=== PATIENT | female | born 1985 | race Caucasian/White ===

== ENCOUNTER 2016-05-04 01:43 | Emergency (ER) | payer SELFPAY ==
[~2016-05-04] VITALS: Ht 152.4 cm; Wt 78.0 kg
[~2016-05-04 01:43] MED LIST: PRED20 PO; VENTAER INH
[2016-05-04 01:45] VITALS: BP 134/75; PULSE 96; RESP 16; TEMP 97.6; O2SAT 96
[2016-05-04 03:49] LABS: AUTOMATED NEUTROPHIL # 5.1 TH/MM3 (1.8-7.7); BASOPHIL # 0.1 TH/MM3 (0-0.2); BASOPHIL % 0.7 % (0.0-2.0); EOSINOPHIL # 0.1 TH/MM3 (0-0.4); EOSINOPHIL % 1.4 % (0.0-4.0); HEMATOCRIT 35.1 % (35.0-46.0); LYMPH % 24.2 % (9.0-44.0); LYMPHOCYTE # 1.8 TH/MM3 (1.0-4.8); MEAN CELL VOLUME 75.3 FL (80.0-100.0); MEAN CORPUSCULAR HEMOGLOBIN 24.2 PG (27.0-34.0); MEAN CORPUSCULAR HGB CONC 32.1 % (32.0-36.0); MONO % 3.7 % (0.0-8.0); PLATELET COUNT 529 TH/MM3 (150-450); RED BLOOD COUNT 4.65 MIL/MM3 (4.00-5.30); RED CELL DISTRIBUTION WIDTH 17.4 % (11.6-17.2); WHITE BLOOD COUNT 7.3 TH/MM3 (4.0-11.0)
[2016-05-04 03:50] LABS: HEMO FLAGS AUTO DIFF
[2016-05-04 04:04] LABS: ALT (GPT) 19 U/L (10-53); ANION GAP 9 MEQ/L (5-15); AST (GOT) 11 U/L (15-37); BICARBONATE 24.1 MEQ/L (21.0-32.0); BLOOD UREA NITROGEN 6 MG/DL (7-18); CHLORIDE 110 MEQ/L (98-107); GLOMERULAR FILTRATION RATE 118 ML/MIN (>89); POTASSIUM 3.7 MEQ/L (3.5-5.1); SODIUM (NA) 143 MEQ/L (136-145)
[2016-05-04 04:07] LABS: ALKALINE PHOSPHATASE 112 U/L (45-117); TOTAL BILIRUBIN ADULT 0.3 MG/DL (0.2-1.0)
--- NOTE | 2016-05-04 04:33 | RADRPT ---
EXAM DATE/TIME: 05/04/2016 03:52 [place] COMPARISON: No previous studies available for comparison. INDICATIONS : Tripped and fell, hit forehead RADIATION DOSE: 36.33 CTDIvol (mGy) MEDICAL HISTORY : None SURGICAL HISTORY : None. ENCOUNTER: Initial ACUITY: 1 day PAIN SCALE: 7/10 LOCATION: frontal TECHNIQUE: Multiple contiguous axial images were obtained of the head. Using automated exposure control and adj ustment of the mA and/or kV according to patient size, radiation dose was kept as low as reasonably a chievable to obtain optimal diagnostic quality images. FINDINGS: CEREBRUM: The ventricles are normal for age. No evidence of midline shift, mass lesion, hemorrhage or acute in farction. No extra-axial fluid collections are seen. POSTERIOR FOSSA: The cerebellum and brainstem are intact. The 4th ventricle is midline. The cerebellopontine angle i s unremarkable. EXTRACRANIAL: The visualized portion of the orbits is intact. There is left maxillary sinus disease. SKULL: The calvaria is intact. No evidence of skull fracture. There is a superior medial left frontal scalp injury. CONCLUSION: 1. No intracranial abnormality. 2. Left frontal scalp injury. Brendan Shah MD on May 04, 2016 at 4:30 Board Certified Radiologist. This report was verified electronically.
[2016-05-04 05:25] LABS: ACANTHOCYTES OCC (NORMAL); PLATELET ESTIMATE SMEAR HIGH (NORMAL); PLATELET MORPHOLOGY NORMAL (NORMAL); SCAN/DIFF AUTO DIFF CONFIRMED
--- NOTE | 2016-05-04 05:38 | PD ---
HPI Chief Complaint: Fall Time Seen by Provider: 05:30 Travel History International Travel<30 days: No Contact w/Intl Traveler<30days: No Traveled to known affect area: No History of Present Illness HPI 31-year-old female with no significant past medical issues, presents to the ER today because she states that she has been drinking this evening, tripped, fell , hit her head in the mirror, and has laceration to her scalp, denies loss of consciousness. She states she is still quite nauseous and has been vomiting. She denies any other issues or injuries. She denies any abdominal pain, fevers , or other symptoms. Modifying Factors: None Associated Signs & Symptoms: Trip, found to mirror, head injury, scalp laceration, vomiting Risk Factors: None PFSH Past Medical History Asthma: Yes Diminished Hearing: No Respiratory: Yes (ASTHMA) Immunizations Current: Yes Tetanus Vaccination: < 5 Years Influenza Vaccination: No ?: Not LMP: 3 WKS AGO : 4 Para: 3 Past Surgical History Surgical History: No Previous Surgery Social History Alcohol Use: Yes Tobacco Use: Yes (/2 PPD) Substance Use: No Allergies-Medications (Allergen,Severity, Reaction): Coded Allergies: No Known Allergies (Unverified , 05/04/16) Reported Meds & Prescriptions Reported Meds & Active Scripts Active Deltasone (Prednisone) 20 Mg Tab 1 Tab PO DAILY 5 Days Ventolin Hfa (Albuterol Sulfate) 18 Gm Aero 2 Puff INH Q6H PRN Review of Systems Except as stated in HPI: all other systems reviewed are Neg Physical Exam Narrative GENERAL: Well-nourished, well-developed young female patient in no acute distress, sleeping initially on initial evaluation. Awake and oriented 3. SKIN: Warm and dry. HEAD: Normocephalic. There is a 5 cm laceration to the anterior top scalp. Bleeding controlled. EYES: No scleral icterus. No injection or drainage. Pupils are equal, round, reactive to light bilaterally. NECK: Supple, trachea midline. CARDIOVASCULAR: Regular rate and rhythm without murmurs, gallops, or rubs. RESPIRATORY: Breath sounds equal bilaterally. No accessory muscle use. GASTROINTESTINAL: Abdomen soft, non-tender, nondistended. MUSCULOSKELETAL: No cyanosis, or edema. BACK: Nontender without obvious deformity. No CVA tenderness. NEUROLOGICAL: Awake and alert. Cranial nerves II through XII intact. Motor and sensory grossly within normal limits. Five out of 5 muscle strength in all muscle groups. Normal speech. Data Data Last Documented VS Vital Signs Date Time Temp Pulse Resp B/P Pulse Ox O2 Delivery O2 Flow Rate FiO2 05/04/16 01:45 97.6 96 16 134/75 96 Room Air Orders Complete Blood Count With Diff (05/04/16 02:12) Comprehensive Metabolic Panel (05/04/16 02:12) Lipase (05/04/16 02:12) Ed Urine Pregnancytest Poc (05/04/16 02:12) Ct Brain W/O Iv Contrast(Rout) (05/04/16 02:32) Tetanus/Diphtheria Tox Adult (Tetanus/Di (05/04/16 05:45) Lidocai-Epi 1%-1:100,000 Inj (Xylocaine- (05/04/16 05:45) Labs Laboratory Tests Test 05/04/16 03:36 White Blood Count 7.3 TH/MM3 Red Blood Count 4.65 MIL/MM3 Hemoglobin 11.2 GM/DL Hematocrit 35.1 % Mean Corpuscular Volume 75.3 FL Mean Corpuscular Hemoglobin 24.2 PG Mean Corpuscular Hemoglobin 32.1 % Concent Red Cell Distribution Width 17.4 % Platelet Count 529 TH/MM3 Mean Platelet Volume 7.7 FL Neutrophils (%) (Auto) 70.0 % Lymphocytes (%) (Auto) 24.2 % Monocytes (%) (Auto) 3.7 % Eosinophils (%) (Auto) 1.4 % Basophils (%) (Auto) 0.7 % Neutrophils # (Auto) 5.1 TH/MM3 Lymphocytes # (Auto) 1.8 TH/MM3 Monocytes # (Auto) 0.3 TH/MM3 Eosinophils # (Auto) 0.1 TH/MM3 Basophils # (Auto) 0.1 TH/MM3 CBC Comment AUTO DIFF Differential Comment AUTO DIFF CONFIRMED Platelet Estimate HIGH Platelet Morphology Comment NORMAL Acanthocytes OCC Sodium Level 143 MEQ/L Potassium Level 3.7 MEQ/L Chloride Level 110 MEQ/L Carbon Dioxide Level 24.1 MEQ/L Anion Gap 9 MEQ/L Blood Urea Nitrogen 6 MG/DL Creatinine 0.59 MG/DL Estimat Glomerular Filtration 118 ML/MIN Rate Random Glucose 96 MG/DL Calcium Level 8.0 MG/DL Total Bilirubin 0.3 MG/DL Aspartate Amino Transf 11 U/L (AST/SGOT) Alanine Aminotransferase 19 U/L (ALT/SGPT) Alkaline Phosphatase 112 U/L Total Protein 6.9 GM/DL Albumin 3.4 GM/DL Lipase 234 U/L [facility] Medical Decision Making Medical Screen Exam Complete: Yes Emergency Medical Condition: Yes Medical Record Reviewed: Yes Interpretation(s) Laboratory Tests Test 05/04/16 03:36 Hemoglobin 11.2 GM/DL (11.6-15.3) Mean Corpuscular Volume 75.3 FL (80.0-100.0) Mean Corpuscular Hemoglobin 24.2 PG (27.0-34.0) Red Cell Distribution Width 17.4 % (11.6-17.2) Platelet Count 529 TH/MM3 (150-450) Platelet Estimate HIGH (NORMAL) Acanthocytes OCC (NORMAL) Chloride Level 110 MEQ/L (98-107) Blood Urea Nitrogen 6 MG/DL (7-18) Calcium Level 8.0 MG/DL (8.5-10.1) Aspartate Amino Transf 11 U/L (15-37) (AST/SGOT) Last [address] 05/04/16 0232 Signed Impressions: Service Date/Time: Wednesday, May 04, 2016 03:52 - CONCLUSION: 1. No intracranial abnormality. 2. Left frontal scalp injury. Brendan Shah MD Differential Diagnosis Fall, head injury, scalp lacerationrule out acute intracranial injuries Narrative Course CAT scan did not reveal any signs of acute intracranial processes. Lab work did not show significant metabolic issues. Vital signs are stable in the ER. Scalp laceration was stapled in the ER. Patient has a tetanus shot from last year. At this point, my plan would be to release the patient with wound care instructions, staple removal in 1 week. Return for any worsening in vomiting, headaches, or new symptoms as needed. The plan has discussed with her and she states understanding. Diagnosis Primary Impression: Scalp laceration Disposition: 01 DISCHARGE HOME Condition: Stable SoontharoYolanda hinojosa MD May 04, 2016 05:38
[2016-05-04] MEDS ORDERED: LIDOCAINE 1%/EPINEPHrine 1:100,000 SOLN 20 ML VIAL INFIL ONE (05:45)
[2016-05-04] MEDS ORDERED: TETANUS/DIPHTHERIA TOXOID ADULT 0.5 ML VIAL IM ONE (05:45)
--- NOTE | 2016-05-04 05:56 | PD ---
Physical Exam Date Seen by Provider: May 04, 2016 Time Seen by Provider: 05:54 Narrative Skin: Patient has a 5 centimeter scalp laceration. No foreign body. Neurovascular intact. No step-off. Data Data Last Documented VS Vital Signs Date Time Temp Pulse Resp B/P Pulse Ox O2 Delivery O2 Flow Rate FiO2 05/04/16 01:45 97.6 96 16 134/75 96 Room Air Orders Complete Blood Count With Diff (05/04/16 02:12) Comprehensive Metabolic Panel (05/04/16 02:12) Lipase (05/04/16 02:12) Ed Urine Pregnancytest Poc (05/04/16 02:12) Ct Brain W/O Iv Contrast(Rout) (05/04/16 02:32) Tetanus/Diphtheria Tox Adult (Tetanus/Di (05/04/16 05:45) Lidocai-Epi 1%-1:100,000 Inj (Xylocaine- (05/04/16 05:45) Labs Laboratory Tests Test 05/04/16 03:36 White Blood Count 7.3 TH/MM3 Red Blood Count 4.65 MIL/MM3 Hemoglobin 11.2 GM/DL Hematocrit 35.1 % Mean Corpuscular Volume 75.3 FL Mean Corpuscular Hemoglobin 24.2 PG Mean Corpuscular Hemoglobin 32.1 % Concent Red Cell Distribution Width 17.4 % Platelet Count 529 TH/MM3 Mean Platelet Volume 7.7 FL Neutrophils (%) (Auto) 70.0 % Lymphocytes (%) (Auto) 24.2 % Monocytes (%) (Auto) 3.7 % Eosinophils (%) (Auto) 1.4 % Basophils (%) (Auto) 0.7 % Neutrophils # (Auto) 5.1 TH/MM3 Lymphocytes # (Auto) 1.8 TH/MM3 Monocytes # (Auto) 0.3 TH/MM3 Eosinophils # (Auto) 0.1 TH/MM3 Basophils # (Auto) 0.1 TH/MM3 CBC Comment AUTO DIFF Differential Comment AUTO DIFF CONFIRMED Platelet Estimate HIGH Platelet Morphology Comment NORMAL Acanthocytes OCC Sodium Level 143 MEQ/L Potassium Level 3.7 MEQ/L Chloride Level 110 MEQ/L Carbon Dioxide Level 24.1 MEQ/L Anion Gap 9 MEQ/L Blood Urea Nitrogen 6 MG/DL Creatinine 0.59 MG/DL Estimat Glomerular Filtration 118 ML/MIN Rate Random Glucose 96 MG/DL Calcium Level 8.0 MG/DL Total Bilirubin 0.3 MG/DL Aspartate Amino Transf 11 U/L (AST/SGOT) Alanine Aminotransferase 19 U/L (ALT/SGPT) Alkaline Phosphatase 112 U/L Total Protein 6.9 GM/DL Albumin 3.4 GM/DL Lipase 234 U/L [facility] Medical Record Reviewed: Yes Supervised Visit with MARYBEL: Yes Interpretation(s) Last [address] 05/04/16 0232 Signed Impressions: Service Date/Time: Wednesday, May 04, 2016 03:52 - CONCLUSION: 1. No intracranial abnormality. 2. Left frontal scalp injury. Brendan Shah MD Differential Diagnosis MDM: High Differential diagnoses: Fracture, sprain, strain, dislocation, contusion, neurovascular injury Narrative Course Patient scalp lacerations closed with pratibha. Tetanus updated. Procedures Procedure Narrative LACERATION LOCATION: Anterior scalp LENGTH: 5 cm NUMBER OF STITCHES/PRATIBHA: 7 REPAIR: The area of the laceration was prepped with Betadine and sterilely draped. The laceration was infiltrated with 1% lidocaine with epinephrine. The wound was copiously irrigated and explored without evidence of foreign body , tendon injury or neurovascular injury. The wound was closed using pratibha. This was a simple single layer repair. The patient was advised to keep the dressing clean and dry. Patient tolerated the procedure well. Diagnosis Primary Impression: Scalp laceration Patient Instructions: General Instructions Additional Instruction: Rest. Head precautions. Elevation. Tylenol and Advil for pain. Daily wound care with soap, water, Neosporin. Sutures out in 9 days. Return to the ER if any problems. Med/Other Pt SpecificInfo: Wound Care Disposition: DISCHARGE HOME Condition: Stable Sony Hernandez May 04, 2016 05:56
[2016-05-04 06:13] VITALS: BP 135/72; PULSE 80; RESP 16; O2SAT 96
== END 2016-05-04 06:32 | disposition home or self-care (01) ==
LOC: NEPE 01:43
DX: S01.01XA Laceration without foreign body of scalp, initial encounter (principal); J45.909 Unspecified asthma, uncomplicated; F17.210 Nicotine dependence, cigarettes, uncomplicated; W01.110A Fall on same level from slipping, tripping and stumbling with subsequent striking against sharp glass, initial encounter
CPT/HCPCS: 12002; 70450; 80053; 83690; 84703; 85025